=== PATIENT | male | born 1935 | race Caucasian/White ===

== ENCOUNTER → 2020-02-10 | Outpatient (CLI) | payer MEDICARE, OTHER ==
[~2020-02-10] MED LIST: ATOR40TA78 PO; TAMS-11 PO; finasteride PO
[2020-02-10 13:28] LABS: BASOPHILS # (AUTO) 0.02 x10^3/uL (0-0.1); BASOPHILS % (AUTO) 0 % (0-1); EOSINOPHILS # (AUTO) 0.18 x10^3/uL (0-0.4); EOSINOPHILS % (AUTO) 2 % (1-7); LYMPHOCYTES # (AUTO) 1.35 x10^3/uL (1-3.4); LYMPHOCYTES % (AUTO) 15 % (22-44); MD NO; MEAN CORPUSCULAR HEMOGLOBIN 30.7 pg (27.5-34.5); MEAN CORPUSCULAR HGB CONC 32.8 g/dL (33.2-36.2); MEAN CORPUSCULAR VOLUME 93.6 fL (81-97); MEAN PLATELET VOLUME 8.4 fL (7.4-10.4); MONOCYTES # (AUTO) 0.61 x10^3/uL (0.2-0.8); MONOCYTES % (AUTO) 7 % (2-9); NEUTROPHILS % (AUTO) 77 % (42-75); PLATELET COUNT 281 x10^3/uL (130-400); RED BLOOD COUNT 4.42 x10^6/uL (4.38-5.82); RED CELL DISTRIBUTION WIDTH 14.4 % (9.4-14.8)
[2020-02-10 13:38] LABS: ALBUMIN 3.8 g/dL (3.4-5.0); ANION GAP 2 mmol/L (5-15); CALCIUM 9.2 mg/dL (8.5-10.1); CHLORIDE 112 mmol/L (98-107); MICROSCOPIC AUTO
[2020-02-10 13:43] LABS: ALANINE AMINOTRANSFERASE 13 U/L (12-78); ALKALINE PHOSPHATASE 70 U/L (45-117); BILIRUBIN,TOTAL 0.5 mg/dL (0.2-1.0); CREATININE 1.33 mg/dL (0.7-1.3); TOTAL PROTEIN 7.7 g/dL (6.4-8.2)
[2020-02-10 13:55] LABS: INTERNATIONAL NORMALIZED RATIO 1.11 (0.93-1.1); PROTHROMBIN TIME 11.4 Seconds (9.6-11.5)
== END | disposition home or self-care (01) ==
LOC: STAR 12:23
PROVIDERS: ATTEND Urology
DX: Z01.818 Encounter for other preprocedural examination (principal); N32.9 Bladder disorder, unspecified
CPT/HCPCS: 36415; 80053; 81001; 85025; 85610; 87086; 93005

== ENCOUNTER 2020-02-16 06:56 | Day surgery (SDC) | payer MEDICARE, OTHER ==
[~2020-02-16] VITALS: Ht 170.2 cm; Wt 75.0 kg
[2020-02-16] MEDS ORDERED: LACTATED RINGERS 1,000 ML IV SCH (07:37)
[2020-02-16] MEDS ORDERED: CHLORHEXIDINE 15 ML UDC MM STA (07:38)
[2020-02-16 07:44] VITALS: BP 169/67
[2020-02-16] MEDS ORDERED: PROPOFOL 10 MG/ML, 20ML ONE (08:31)
[2020-02-16] MEDS ORDERED: FENTANYL PF 100 MCG/2ML ONE ×2 (08:32→10:23)
[2020-02-16] MEDS ORDERED: LIDOCAINE-MPF 2% ,5ML ONE (08:32)
[2020-02-16] MEDS ORDERED: DEXAMETHASONE 4 MG/ML, 1ML ONE (08:47)
[2020-02-16] MEDS ORDERED: ONDANSETRON 2MG/ML, 2ML ONE (08:47)
[2020-02-16] MEDS ORDERED: GLYCOPYRROLATE 0.2MG/1ML, 5ML ONE (08:58)
[2020-02-16] MEDS ORDERED: FENTANYL PF 100 MCG/2ML IV PRN (09:00)
[2020-02-16] MEDS ORDERED: ONDANSETRON 2MG/ML, 2ML IVPush PRN (09:00)
[2020-02-16] MEDS ORDERED: GEMCITABINE HCL 2,000 MG in SODIUM CHLORIDE 0.9% 47.4 ML IS ONE (09:00)
[2020-02-16] MEDS ORDERED: GEMCITABINE HCL 2,000 MG in SODIUM CHLORIDE 0.9% 100 ML IS ONE (09:00)
[2020-02-16] MEDS ORDERED: CEFAZOLIN 1,000 MG ONE ×2 (09:04)
[2020-02-16] MEDS ORDERED: EPHEDRINE 50 MG/ML, 1ML ONE (09:04)
[2020-02-16] MEDS ORDERED: hydrALAzine 20 MG/ML, 1ML ONE (10:23)
[2020-02-16] MEDS ORDERED: LABETALOL 5MG/ML, 20ML ONE (10:23)
[2020-02-16] MEDS ORDERED: LABETALOL 5MG/ML, 20ML IV PRN (11:00)
[2020-02-16] MEDS ORDERED: hydrALAzine 20 MG/ML, 1ML IV PRN (11:00)
== END 2020-02-16 12:15 | disposition home or self-care (01) ==
LOC: OUT 06:56
PROVIDERS: ATTEND Urology
DX: D49.4 Neoplasm of unspecified behavior of bladder (principal); Z11.59 Encounter for screening for other viral diseases; C67.3 Malignant neoplasm of anterior wall of bladder; N40.0 Benign prostatic hyperplasia without lower urinary tract symptoms; E78.5 Hyperlipidemia, unspecified; Z79.899 Other long term (current) drug therapy; Z87.891 Personal history of nicotine dependence; Z90.79 Acquired absence of other genital organ(s); Z82.49 Family history of ischemic heart disease and other diseases of the circulatory system
CPT/HCPCS: 36415; 51720; 52235; 87635; 88305; J0360; J0690; J2704; J3010; J7120; J9201; J1100; J2405

== ENCOUNTER 2020-02-17 02:45 | Emergency (ER) | payer MEDICARE, OTHER ==
[~2020-02-17] VITALS: Ht 170.2 cm; Wt 79.6 kg
--- NOTE | 2020-02-17 03:05 | NUR ---
assumed care of pt. pt here for difficulty urinating x1 day. pt reports that he jut had a T.U.R.P. with Dr. Barker and that he was d/c home with a laguna in place. pt states that he ws having difficulty urinating, so he pulled the laguna out and now he is concerned that he has not been able to urinate for several hours pt denies pain or bladder pressure. denies any urethral discharge. restin in position of comfort on [address]. no family at bedside
--- NOTE | 2020-02-17 03:10 | NUR ---
bladder scan done at bedside, 57cc found in bladder
--- NOTE | 2020-02-17 03:25 | NUR ---
urine sample collected and sent
[2020-02-17 03:42] LABS: MICROSCOPIC AUTO
[2020-02-17 04:22] VITALS: BP 150/60
== END 2020-02-17 04:26 | disposition home or self-care (01) ==
LOC: ED 03:09
DX: R31.0 Gross hematuria (principal); Z87.891 Personal history of nicotine dependence
CPT/HCPCS: 81001; 99284

== ENCOUNTER 2020-04-23 21:15 | Emergency (ER) | payer MEDICARE, OTHER ==
[~2020-04-23] VITALS: Ht 170.2 cm; Wt 75.3 kg
[2020-04-23 22:21] LABS: MICROSCOPIC INDICATED
--- NOTE | 2020-04-23 22:22 | NUR ---
ASSUMED CARE OF PATIENT. PATIENT REPORTS BLOOD IN HIS URINE X3 DAYS. PT HAD RECENT BLADDER SURGERY. BEFORE THE SURGERY PT USE TO SELF CATH, PT REPORTS HE NO LONGER SELF CATHS. VS STABLE. CALL LIGHT IN PLACE. NO ACUTE DISTRESS NOTED. WILL CONTINUE TO MONITOR.
[2020-04-23 22:39] LABS: ALBUMIN 3.4 g/dL (3.4-5.0); ANION GAP 2 mmol/L (5-15); CALCIUM 9.1 mg/dL (8.5-10.1); CHLORIDE 105 mmol/L (98-107); CREATININE 1.09 mg/dL (0.7-1.3)
[2020-04-23 22:41] LABS: INTERNATIONAL NORMALIZED RATIO 1.1 (0.93-1.1); PROTHROMBIN TIME 11.7 Seconds (9.6-11.5)
[2020-04-23 22:53] LABS: BASOPHILS % (AUTO) 1 % (0-1); EOSINOPHILS % (AUTO) 3 % (1-7); LYMPHOCYTES % (AUTO) 16 % (22-44); MEAN CORPUSCULAR HEMOGLOBIN 30.1 pg (27.5-34.5); MEAN CORPUSCULAR HGB CONC 32.6 g/dL (33.2-36.2); MEAN PLATELET VOLUME 8.6 fL (7.4-10.4); MONOCYTES % (AUTO) 8 % (2-9); NEUTROPHILS % (AUTO) 73 % (42-75); PLATELET COUNT 265 x10^3/uL (130-400); RED BLOOD COUNT 4.38 x10^6/uL (4.38-5.82)
--- NOTE | 2020-04-23 23:00 | NUR ---
CBI IN PROGRESS PER DR MORRELL. VS STABLE NO ACUTE DISTRESS NOTED. WILL CONTINUE TO MONITOR.
[2020-04-23 23:24] LABS: MD NO
--- NOTE | 2020-04-23 23:27 | NUR ---
HAND IRRIGATION DONE PER DR MORRELL. MULTIPLE CLOTS OUT. VS STABLE. NO ACUTE DISTRESS NOTED. WILL CONTINUE TO MONITOR.
[2020-04-23] MEDS ORDERED: CIPROFLOXACIN 500 MG TABLET PO ONE (23:30)
[2020-04-23] MEDS ORDERED: SODIUM CHLORIDE FLUSH 10ML SYR IVF ONE (23:30)
[2020-04-23] MEDS ORDERED: CEFTRIAXONE PMX 1GM/50ML 50 ML IV ONE (23:30)
[2020-04-23] MEDS ORDERED: CEFTRIAXONE PMX 1GM/50ML 50 ML ONE (23:38)
--- NOTE | 2020-04-23 23:44 | NUR ---
NO BLOOD CULTURES PER DR MORRELL
--- NOTE | 2020-04-23 23:46 | NUR ---
BECCA HOPSITALIST IN ROOM
[2020-04-24] MEDS ORDERED: ACETAMINOPHEN 325 MG TABLET PO PRN
[2020-04-24] MEDS ORDERED: BISACODYL 10 MG SUPP PR PRN
[2020-04-24] MEDS ORDERED: POLYETHYLENE GLYCOL 17 GM PACKET PO PRN
[2020-04-24] MEDS ORDERED: ONDANSETRON ODT 4 MG PO PRN
--- NOTE | 2020-04-24 01:00 | NUR ---
REPORT OF PT FROM BETINA COUGHLIN AND ASSUMING CARE OF PT AT THIS TIME.
--- NOTE | 2020-04-24 01:00 | NUR ---
report given to BETINA Pugh
--- NOTE | 2020-04-24 03:54 | NUR ---
PT WAS ASSISTED TO BED SIDE COMMODE. PT RESTING IN [facility] AT THIS TIME; NADN. CALL LIGHT IS WITHIN REACH. CBI INFUSING AT THIS TIME. PT DENIES ANY NEEDS. VSS AND UPDATED IN EMR.
[2020-04-24 05:05] LABS: BASOPHILS % (AUTO) 1 % (0-1); EOSINOPHILS % (AUTO) 3 % (1-7); LYMPHOCYTES % (AUTO) 16 % (22-44); MEAN CORPUSCULAR HEMOGLOBIN 30.8 pg (27.5-34.5); MEAN CORPUSCULAR HGB CONC 33.3 g/dL (33.2-36.2); MEAN PLATELET VOLUME 8.5 fL (7.4-10.4); MONOCYTES % (AUTO) 8 % (2-9); NEUTROPHILS % (AUTO) 73 % (42-75); PLATELET COUNT 259 x10^3/uL (130-400); RED BLOOD COUNT 4.53 x10^6/uL (4.38-5.82); RED CELL DISTRIBUTION WIDTH 13.9 % (9.4-14.8)
[2020-04-24 05:08] LABS: MD NO
[2020-04-24 05:17] LABS: CHLORIDE 108 mmol/L (98-107)
[2020-04-24 05:23] LABS: ANION GAP 3 mmol/L (5-15); CALCIUM 9.5 mg/dL (8.5-10.1); CREATININE 1.12 mg/dL (0.7-1.3)
--- NOTE | 2020-04-24 08:26 | NUR ---
REPORT RECEIVED FROM BETINA HUDSON. PT KILGORE CLOGGED. FLUSHED KILGORE. CBI IS FLOWING APPROPRIATELY
[2020-04-24] MEDS ORDERED: TAMSULOSIN 0.4 MG CAP.ER.24H ONE (08:59)
[2020-04-24] MEDS ORDERED: FINASTERIDE 5 MG TABLET PO SCH (09:00)
[2020-04-24] MEDS ORDERED: TAMSULOSIN 0.4 MG CAP.ER.24H PO SCH (09:00)
[2020-04-24] MEDS ORDERED: SENNA/DOCUSATE TABLET PO SCH (09:00)
[2020-04-24] MEDS: SODIUM CHLORIDE FLUSH 10ML SYR IVF SCH ×2 (09:00)
--- NOTE | 2020-04-24 09:09 | NUR ---
pt provided with meal tray. medicated per mar
[2020-04-24] MEDS ORDERED: CEFD300C37 PO (11:28)
[2020-04-24] MEDS ORDERED: AMLO10TA8 PO (11:29)
[2020-04-24] MEDS ORDERED: CLON0.1T22 PO ×3 (11:30→11:32)
--- NOTE | 2020-04-24 11:39 | NUR ---
PT TO BE MEDICATED FOR HYPETENSION. THEN PROVIDER IS TO BE NOTIFIED OF BP AT 1500. PROVIDER WILL THEN MAKE DECSION ON POSSIBLE DC
[2020-04-24] MEDS ORDERED: AMLODIPINE 5 MG TABLET ONE (11:42)
--- NOTE | 2020-04-24 11:46 | NUR ---
pt medicated per verbal order
--- NOTE | 2020-04-24 11:56 | NUR ---
report to marielena ji
[2020-04-24] MEDS ORDERED: AMLODIPINE 5 MG TABLET PO ONE (12:00)
--- NOTE | 2020-04-24 12:06 | NUR ---
REPORT RECEIVED FROM BETINA GALLOWAY FOR TRANSFER OF PATIENT CARE.
--- NOTE | 2020-04-24 12:15 | NUR ---
PATIENT PLACED ON HOME SERVICE ADVISOR, CBI RUNNING, URINE IS CLEAR YELLOW, SIDE RAILS UP X2, CALL LIGHT WITHIN REACH, NO FURTHER NEEDS AT THIS TIME.
--- NOTE | 2020-04-24 12:53 | NUR ---
PATIENT RESTING IN [facility], CONNECTED TO CARDAIC MONITOR, SIDE RAILS UP X2, CBI RUNNING SLOW, URINE STILL YELLOW CLEAR, CALL LIGHT WITHIN REACH, NO FURTHER NEEDS AT THIS TIME.
[2020-04-24 13:41] VITALS: BP 131/57
--- NOTE | 2020-04-24 13:42 | NUR ---
PATIENT SITTING AT EDGE OF BED, CONNECTED TO PIANO CASE MAKER, CALL LIGHT WITHIN REACH, NO FURTHER NEEDS AT THIS TIME.
--- NOTE | 2020-04-24 13:48 | NUR ---
PATIENT AMBULATED TO BEDSIDE COMMODE WITH STEADY GAIT.
--- NOTE | 2020-04-24 14:09 | NUR ---
SPOKE WITH DR. GONZALEZ, NURSING INSTRUCTION PUT IN TO DISCHARGE PATIENT. INFORMED DR. GONZALEZ THAT PATIENT WOULD LIKE TO GO HOME WITH K[facility], AND HE WILL REMOVE IN [address] GONZALEZ WOULD LIKE THIS RN TO CONTACT DR. BECKMAN WITH UROLOGY AND SPEAK WITH HIM ABOUT WHETHER HE WANTS PATIENT TO GO HOME WITH KILGORE OR NOT.
--- NOTE | 2020-04-24 14:14 | NUR ---
DR. BECKMAN WITH [facility]OLOGY [facility] PAGED. WAITING FOR CALL BACK TO DISCUSS POC.
--- NOTE | 2020-04-24 14:32 | NUR ---
SPOKE WITH SHILPI ANGELA FOR DR. BECKMAN WITH [facility]. SHE WOULD LIKE PATIENT TO BE DISCHARGED WITH [facility], AND HE CAN FOLLOW-UP IN THEIR OFFICE IN A FEW DAYS. PROVIDER WOULD LIKE THIRD PORT CAPPED OFF. REPEATED INSTRUCTIONS BACK TO PROVIDER TO CONFIRM.
--- NOTE | 2020-04-24 14:50 | NUR ---
LATE ENTRY DUE TO PATIENT CARE: DISCHARGE LOUNGE NOTIFIED OF PATIENT'S DISCHARGE ORDERS. THEY WILL COME DOWN TO DO ADMISSION AND DISCHARGE PAPERWORK WITH PATIENT. PATIENT UPDATED ON POC.
--- NOTE | 2020-04-24 15:22 | NUR ---
GIAN RN FROM [facility] DOING ADMISSION/DISCHARGE PAPERWORK WITH PATIENT.
--- NOTE | 2020-04-24 16:06 | NUR ---
Patient given discharge instructions printed by discharge lound and they have confirmed that they understand the instructions, all questions answered. Patient will follow-up with [facility] in the following week about laguna catheter. All patient belongings gathered and taken with patient. Patient ambulatory with steady gait out of ED.
[2020-04-24] MEDS ORDERED: ATORVASTATIN 40 MG TABLET PO SCH (21:00)
[2020-04-24] MEDS ORDERED: CEFTRIAXONE PMX 1GM/50ML 50 ML IV SCH ×2 (23:00)
== END 2020-04-24 16:09 | disposition home or self-care (01) ==
LOC: ED 22:19 → EDIP 23:39 → UNDOADMIN 23:39 → ED 04-24 16:03
DX: N30.01 Acute cystitis with hematuria (principal); N10 Acute pyelonephritis; Z87.891 Personal history of nicotine dependence; Z85.51 Personal history of malignant neoplasm of bladder
CPT/HCPCS: 36415; 51702; 80048; 81001; 82040; 85025; 85610; 85730; 87086; 96365; 96366; 99285; J0696; 99284

== ENCOUNTER → 2020-09-27 | Outpatient (CLI) | payer MEDICARE, OTHER ==
[~2020-09-27] MED LIST changes: +AMLO-211 PO; +CEFD300C37 PO; +CLON0.1T22 PO; +STOOL SOFTENER PO; +VITAMIN B12 PO
[2020-09-27 12:18] LABS: MICROSCOPIC AUTO
[2020-09-27 12:24] LABS: BASOPHILS % (AUTO) 1 % (0-1); EOSINOPHILS % (AUTO) 2 % (1-7); INTERNATIONAL NORMALIZED RATIO 1.07 (0.93-1.1); LYMPHOCYTES % (AUTO) 16 % (22-44); MEAN CORPUSCULAR HGB CONC 33.7 g/dL (33.2-36.2); MEAN PLATELET VOLUME 8.8 fL (7.4-10.4); MONOCYTES % (AUTO) 6 % (2-9); NEUTROPHILS % (AUTO) 76 % (42-75); PLATELET COUNT 298 x10^3/uL (130-400); PROTHROMBIN TIME 11.4 Seconds (9.6-11.5); RED BLOOD COUNT 4.89 x10^6/uL (4.38-5.82); RED CELL DISTRIBUTION WIDTH 14.1 % (9.4-14.8)
[2020-09-27 12:27] LABS: CALCIUM 9.6 mg/dL (8.5-10.1); CREATININE 1.26 mg/dL (0.7-1.3); MD NO
[2020-09-27 12:38] LABS: ANION GAP 5 mmol/L (5-15); CHLORIDE 106 mmol/L (98-107)
== END | disposition home or self-care (01) ==
LOC: STAR 11:06
PROVIDERS: ATTEND Urology
DX: Z01.818 Encounter for other preprocedural examination (principal); N32.9 Bladder disorder, unspecified; R94.31 Abnormal electrocardiogram [ECG] [EKG]; Z20.822 Contact with and (suspected) exposure to COVID-19
CPT/HCPCS: 36415; 80048; 81001; 85025; 85610; 85730; 87086; 93005; U0003; 87077

== ENCOUNTER 2020-10-01 11:00 | Day surgery (SDC) | payer MEDICARE, OTHER ==
[~2020-10-01] VITALS: Ht 170.2 cm; Wt 71.9 kg
[2020-10-01 11:19] VITALS: BP 171/75
[2020-10-01] MEDS ORDERED: LACTATED RINGERS 1,000 ML IV SCH (11:30)
[2020-10-01] MEDS ORDERED: LIDOCAINE-MPF 1%, 2ML INFIL ONE (11:30)
[2020-10-01] MEDS ORDERED: CHLORHEXIDINE 15 ML UDC MM ONE (11:30)
[2020-10-01] MEDS ORDERED: FENTANYL PF 100 MCG/2ML ONE ×2 (13:15→14:34)
[2020-10-01] MEDS ORDERED: MIDAZOLAM 1 MG/ML, 2ML ONE (13:15)
[2020-10-01] MEDS ORDERED: PROPOFOL 10 MG/ML, 20ML ONE (13:16)
[2020-10-01] MEDS ORDERED: ROCURONIUM 10 MG/ML,10ML ONE (13:22)
[2020-10-01] MEDS ORDERED: SUGAMMADEX 200 MG/2 ML IVPush ONE (13:22)
[2020-10-01] MEDS ORDERED: hydrALAzine 20 MG/ML, 1ML ONE (13:22)
[2020-10-01] MEDS ORDERED: CEFAZOLIN 1,000 MG ONE (13:22)
[2020-10-01] MEDS ORDERED: GEMCITABINE HCL 2,000 MG in SODIUM CHLORIDE 0.9% 80 ML IS ONE (13:30)
[2020-10-01] MEDS ORDERED: GEMCITABINE HCL 2,000 MG in SODIUM CHLORIDE 0.9% 80 ML IV ONE (13:30)
[2020-10-01] MEDS ORDERED: OXYcodone 5 MG/5 ML ORAL.SOL UDC ONE (14:35)
[2020-10-01] MEDS: FENTANYL PF 100 MCG/2ML IV PRN ×2 (14:35→14:50)
[2020-10-01] MEDS ORDERED: PROMETHAZINE 25 MG/ML, 1ML IVPush PRN (15:00)
[2020-10-01] MEDS ORDERED: DIPHENHYDRAMINE 50 MG/ML, 1ML IVPush PRN (15:00)
[2020-10-01] MEDS ORDERED: ONDANSETRON 2MG/ML, 2ML IVPush PRN (15:00)
[2020-10-01] MEDS ORDERED: HYDROmorphone 1 MG/ML, 1ML INJ IVPush PRN (15:00)
[2020-10-01] MEDS ORDERED: OXYcodone 5 MG/5 ML ORAL.SOL UDC PO PRN (15:00)
[2020-10-01] MEDS ORDERED: hydrALAzine 20 MG/ML, 1ML IV PRN (15:00)
[2020-10-01] MEDS ORDERED: MEPERIDINE/PF 25MG/0.5ML IVPush PRN (15:00)
[2020-10-01] MEDS ORDERED: DIAZEPAM 5 MG/ML, 2ML IVPush PRN (15:00)
[2020-10-01] MEDS ORDERED: ACETAMINOPHEN 325 MG TABLET PO PRN (15:00)
[2020-10-01] MEDS ORDERED: LABETALOL 5MG/ML, 20ML IV PRN (15:00)
[2020-10-01] MEDS ORDERED: MEPERIDINE/PF 25MG/ML,1ML ONE (15:27)
== END 2020-10-01 17:00 | disposition home or self-care (01) ==
LOC: OUT 11:00
PROVIDERS: ATTEND Urology
DX: N32.89 Other specified disorders of bladder (principal); N32.3 Diverticulum of bladder; I10 Essential (primary) hypertension; E78.5 Hyperlipidemia, unspecified; Z72.89 Other problems related to lifestyle; Z79.899 Other long term (current) drug therapy; Z87.891 Personal history of nicotine dependence; Z98.890 Other specified postprocedural states; Z85.51 Personal history of malignant neoplasm of bladder
CPT/HCPCS: 51720; 52235; 88305; J0360; J0690; J2175; J2250; J2704; J3010; J7120; J9201

== ENCOUNTER 2020-10-01 19:12 | Emergency (ER) | payer MEDICARE, OTHER ==
[~2020-10-01] VITALS: Ht 170.2 cm; Wt 74.5 kg
[2020-10-01 19:24] VITALS: BP 123/50
--- NOTE | 2020-10-01 20:36 | NUR ---
BLADDER SCAN SHOWED <50ML URINE. INDWELLING CATHETER FLUSHED WITH 250ML STERILE WATER AND >250ML CLEAR, BLOOD TINGED URINE DRAINED. ERP UPDATED.
--- NOTE | 2020-10-01 20:44 | NUR ---
PT PROVIDED WATER. OK PER ER[facility]
--- NOTE | 2020-10-01 21:11 | NUR ---
MORE URINE HAS DRAINED AFTER PT DRANK WATER. PT FEELS COMFORTABLE TO GO HOME. [facility] NOTIFIED.
== END 2020-10-01 21:37 | disposition home or self-care (01) ==
LOC: ED 21:36
DX: T83.091A Other mechanical complication of indwelling urethral catheter, initial encounter (principal); Z87.891 Personal history of nicotine dependence
CPT/HCPCS: 51700; 99284

== ENCOUNTER → 2021-02-17 | Outpatient (CLI) | payer MEDICARE, OTHER ==
[~2021-02-17] MED LIST changes: +DOCU-192 PO
[2021-02-17 11:26] LABS: BASOPHILS % (AUTO) 1 % (0-1); EOSINOPHILS % (AUTO) 3 % (1-7); LYMPHOCYTES % (AUTO) 15 % (22-44); MEAN CORPUSCULAR HEMOGLOBIN 30.2 pg (27.5-34.5); MEAN CORPUSCULAR HGB CONC 33.2 g/dL (33.2-36.2); MEAN PLATELET VOLUME 8.3 fL (7.4-10.4); MONOCYTES % (AUTO) 7 % (2-9); NEUTROPHILS % (AUTO) 75 % (42-75); PLATELET COUNT 290 x10^3/uL (130-400); RED BLOOD COUNT 4.15 x10^6/uL (4.38-5.82); RED CELL DISTRIBUTION WIDTH 14.4 % (9.4-14.8)
[2021-02-17 11:32] LABS: INTERNATIONAL NORMALIZED RATIO 1.05 (0.93-1.1); PROTHROMBIN TIME 11.2 Seconds (9.6-11.5)
[2021-02-17 11:32] LABS: MICROSCOPIC INDICATED
[2021-02-17 11:40] LABS: CALCIUM 9.8 mg/dL (8.5-10.1); CREATININE 1.51 mg/dL (0.7-1.3)
[2021-02-17 11:56] LABS: ANION GAP 6 mmol/L (5-15); CHLORIDE 108 mmol/L (98-107)
== END | disposition home or self-care (01) ==
LOC: STAR 10:28
PROVIDERS: ATTEND Urology
DX: Z01.818 Encounter for other preprocedural examination (principal); C67.9 Malignant neoplasm of bladder, unspecified; I44.0 Atrioventricular block, first degree; R94.31 Abnormal electrocardiogram [ECG] [EKG]
CPT/HCPCS: 36415; 80048; 81001; 85025; 85610; 87086; 93005

== ENCOUNTER 2021-02-23 13:48 | Day surgery (SDC) | payer MEDICARE, OTHER ==
[~2021-02-23] VITALS: Ht 170.2 cm; Wt 69.4 kg
[2021-02-23 14:13] VITALS: BP 163/90
[2021-02-23] MEDS ORDERED: CHLORHEXIDINE 15 ML UDC ONE (14:18)
[2021-02-23] MEDS ORDERED: LACTATED RINGERS 1,000 ML IV SCH (14:30)
[2021-02-23] MEDS ORDERED: CHLORHEXIDINE 15 ML UDC PO ONE (14:30)
[2021-02-23] MEDS ORDERED: OXYcodone 5 MG/5 ML ORAL.SOL UDC PO PRN (15:00)
[2021-02-23] MEDS ORDERED: HALOPERIDOL 5 MG/ML IV PRN (15:00)
[2021-02-23] MEDS ORDERED: PROMETHAZINE 25 MG/ML, 1ML IVPush PRN (15:00)
[2021-02-23] MEDS ORDERED: MEPERIDINE/PF 25MG/0.5ML IVPush PRN (15:00)
[2021-02-23] MEDS ORDERED: hydrALAzine 20 MG/ML, 1ML IV PRN (15:00)
[2021-02-23] MEDS ORDERED: HYDROmorphone 1 MG/ML, 1ML INJ IVPush PRN (15:00)
[2021-02-23] MEDS ORDERED: FENTANYL PF 100 MCG/2ML IV PRN (15:00)
[2021-02-23] MEDS ORDERED: LABETALOL 5MG/ML, 20ML IV PRN (15:00)
[2021-02-23] MEDS ORDERED: ACETAMINOPHEN 325 MG TABLET PO PRN (15:00)
[2021-02-23] MEDS ORDERED: DIPHENHYDRAMINE 50 MG/ML, 1ML IVPush PRN (15:00)
[2021-02-23] MEDS ORDERED: GEMCITABINE HCL 1,000 MG in SODIUM CHLORIDE 0.9% 23.7 ML IS ONE (15:30)
[2021-02-23] MEDS ORDERED: CEFTRIAXONE 500 MG in DEXTROSE 5% 50 ML IV ONE (15:30)
[2021-02-23] MEDS ORDERED: FENTANYL PF 100 MCG/2ML ONE (15:42)
[2021-02-23] MEDS ORDERED: CEFTRIAXONE 1,000 MG in DEXTROSE 5% 50 ML IV ONE (15:48)
[2021-02-23] MEDS ORDERED: DEXAMETHASONE 4 MG/ML, 1ML ONE (15:55)
[2021-02-23] MEDS ORDERED: PROPOFOL 10 MG/ML, 20ML ONE (15:55)
[2021-02-23] MEDS ORDERED: ONDANSETRON 2MG/ML, 2ML ONE (15:55)
[2021-02-23] MEDS ORDERED: CEFAZOLIN 1,000 MG ONE (15:55)
== END 2021-02-23 18:32 | disposition home or self-care (01) ==
LOC: OR 13:48
PROVIDERS: ATTEND Urology
DX: C67.4 Malignant neoplasm of posterior wall of bladder (principal); I10 Essential (primary) hypertension; E78.5 Hyperlipidemia, unspecified; E03.9 Hypothyroidism, unspecified; Z79.899 Other long term (current) drug therapy; Z72.89 Other problems related to lifestyle; Z98.890 Other specified postprocedural states; Z87.891 Personal history of nicotine dependence
CPT/HCPCS: 51720; 52235; 88305; J1100; J2405; J2704; J3010; J7120; J9201; J0690